=== PATIENT | female | born 1950 | race Hispanic/Latino ===

== ENCOUNTER 2019-03-20 20:05 | Emergency (ER) | payer MEDICARE ==
[~2019-03-20] VITALS: Ht 165.1 cm; Wt 115.2 kg
--- OUTSIDE RECORDS SUMMARY | 2019-03-20 20:08 | XMS REPORT ---
Author Author [facility] Address Unknown Phone Unavailable Care Team Providers Care Digital Content Marketing Manager Name Role Phone CANDE ESCOBAR Unavailable Unavailable PAM RAMAN Unavailable Unavailable CHUYITA WATTERS Unavailable Unavailable Problems This patient has no known problems. Allergies, Adverse Reactions, Alerts This patient has no known allergies or adverse reactions. Medications This patient has no known medications. Results Test Description Test Time Test Comments Text Results Atomic Results Result Comments POCT-GLUCOSE METER 2019-02-21 07:25:00 POC-GLUCOSE METER (BEAKER) (test flgr=2197) 95 mg/dL 70-110 [address]ED AT [address] [address] POCT-GLUCOSE [id number] 07:49:00* Test Item Value Reference Range Comments POC-GLUCOSE METER (BEAKER) (test ynfb=4049) 98 mg/dL 70-110 TESTED AT [address] [address] TISSUE [id number] 14:57:00Surgical Pathology Report Case: [id number] Authorizing Provider: Rigoberto Raman, Collected: 05/27/2018 Lluvia ANDINO Ordering Location: [facility] Endoscopy Received: 05/27/2018 1350 Services Pathologist: Sandie Brennan MD Specimens: A) - Biopsy, Gastric, random B) - Distal Esophagus, biopsy C) - Proximal Esophagus A. STOMACH, RANDOM, ENDOSCOPIC BIOPSY: - CHRONIC ACTIVE GASTRITIS, HELICOBACTER PYLORI-ASSOCIATED - NUMEROUS HELICOBACTER PYLORI-LIKE ORGANISMS SEEN ON WARTHIN-STARRY STAIN - NO INTESTINAL METAPLASIA, DYSPLASIA OR MALIGNANCY NOTEDB. ESOPHAGUS, DISTAL, ENDOSCOPIC BIOPSY: - SQUAMOUS MUCOSA WITH REACTIVE CHANGES - FEATURES SUGGESTIVE OF GASTROESOPHAGEAL REFLUX - BACTERIA SEEN - A TINY DETACHED FRAGMENT OF COLUMNAR MUCOSA - NEGATIVE FOR INTESTINAL METAPLASIA, DYSPLASIA OR MALIGNANCYC.ESOPHAGUS, PROXIMAL , ENDOSCOPIC BIOPSY: - SQUAMOUS MUCOSA WITH REACTIVE CHANGES - NEGATIVE FOR DYSPLASIA OR MALIGNANCY Signing Pathologist Direct Phone Line: [phone] signed by Sandie Brennan MD on 05/30/2018 at 2:57 [id number] X 3; [id number] dysphagia A. Random gastric biopsy. B. Distal esophagus biopsy. C. Proximal esophagus biopsy Specimen is received in three containers of formalin all labeled with the patient's information. Specimen A: Labeled "random gastric biopsy" consists of five fragments of thompson-pink soft tissue ranging from less than 0.1 to 0.3 cm, submitted entirely in A1. Specimen B: Labeled "distal esophagus biopsy" consists of two fragments of off-white soft tissue measuring 0.1 and 0.3 cm, submitted entirely in B1. Specimen C: Labeled "proximal esophagus biopsy" consists of three fragments of thompson-pink, off-white soft tissue ranging from 0.1 and 0.4 cm, submitted entirely in C1. CG/ew PERFORMEDThe interpretation of this case included the use of immunohistochemistry or special stains. WARTHIN-STARRYImmuno histochemistry technical testing was performed at [facility], Pathology Laboratory where it was developed and its performance characterist ics were determined. It has not been cleared or approved by the U.S. Food and Dr ug Administration. The FDA has determined that such clearance or approval is not necessary. The test is used for clinical purposes. It should not be regarded as investigational or for research. This laboratory is certified under the Clinical Laboratory Improvement Amendments of 1988 (CLIA-88) as qualified to perform high complexity clinical laboratory testing.POCT-GLUCOSE [id number] 11:10:00* Test Item Value Reference Range Comments POC-GLUCOSE METER (BEAKER) (test avdy=3807) 108 mg/dL 70-110 TESTED AT [facility] [address] [facility] [address] POCT-GLUCOSE [id number] 07:40:00* Test Item Value Reference Range Comments POC-GLUCOSE METER (BEAKER) (test gqxb=3760) 114 mg/dL 70-110 TESTED AT [facility] [address] [facility] [address]
--- OUTSIDE RECORDS SUMMARY | 2019-03-20 20:08 | XMS REPORT | Summary of Care ---
Author Author [facility] Organization [facility] Address Unknown Phone Unavailable Care Team Providers Care Sodium Methylate Operator Name Role Phone PCP Unavailable Reason for Visit * Reason Comments Cataract * Consult, Test & Treat (Routine) Referred By Contact Referred To Contact Status Reason Specialty Diagnoses / [place] [address] [place] [address] Ev Mohamud MD [address] [place] [address] Authorized Consult, Test, and Ophthalmology Diagnoses Treat Non-insulin dependent type 2 diabetes mellitus (HCCode) Blurred vision P rocedures [place] OFFICE OUTPATIENT VISIT 15 MINUTES Encounter Details Care Team Description Date Type Department Ev Mohamud MD [address] [place] [address] Cataract 01/25/2019 Office Visit [facility] Ophthalmology [address] [place] [phone] Allergies Comments Active Allergy Reactions Severity Noted Date weakness Hepatitis B Virus Vaccine Nausea And 05/27/2018 Vomiting documented as of this encounter (statuses as of 01/25/2019) Medications End Date Status Medication Sig Dispensed Refills Start Date Active Elastic Bandages & 1 Piece 1 Each 0 Supports (KNEE BRACE/FLEX daily. 8 STAYS XL) MISC Active losartan-hydrochlorothiaz Take 1 Tab by 90 Tab 3 kaushik (HYZAAR) 50-12.5 MG mouth daily. 8 per tabletIndications: Type 2 diabetes mellitus treated without insulin [facility] Active ONETOUCH USE TO CHECK 200 Strip 3 VERIOIndications: Type 2 BLOOD SUGARS 8 diabetes mellitus treated TWICE DAILY without insulin ([facility] Active ONETOUCH DELICA LANCETS CHECK FASTING 200 Each 3 33G MISCIndications: Type BLOOD GLUCOSE 8 2 diabetes mellitus TWICE DAILY treated without insulin ([facility]) Active methocarbamol (ROBAXIN) Take 1 Tab by 60 Tab 1 500 MG tabletIndications: mouth 2 times 9 Spasm of muscle of lower daily as back needed for Pain. Active buPROPion (WELLBUTRIN XL) Take 1 Tab by 90 Tab 2 150 MG XL mouth every 9 tabletIndications: morning. Depressed mood Active ciclopirox (PENLAC) 8 % Apply weekly 6.6 mL 11 solutionIndications: to toenails 9 Onychomycosis, Type 2 and diabetes mellitus with surrounding diabetic polyneuropathy, cuticles. without long-term current use of insulin ([facility]) Active omeprazole (PRILOSEC) 40 TAKE 1 180 Cap 0 MG capsuleIndications: H. CAPSULE BY 9 pylori infection MOUTH TWICE DAILY BEFORE MEALS FOR 14 DAYS Active Dulaglutide (TRULICITY) INJECT 1 12 Pen 3 1.5 MG/0.5ML SYRINGEFUL( 9 SOPNIndications: 1.5 MG) UNDER Non-insulin dependent THE SKIN ONCE type 2 diabetes mellitus WEEKLY ([facility]) Active ketoconazole (NIZORAL) 2 Apply to 1 Tube 11 % creamIndications: affected area 9 Candidal intertrigo twice a day until rash improves. Active pioglitazone (ACTOS) 15 Take 1 Tab by 90 Tab 3 MG tabletIndications: mouth daily. 9 Non-insulin dependent type 2 diabetes mellitus (HCCode) Active meloxicam (MOBIC) 15 MG TAKE 1 TABLET 30 Tab 0 tablet BY MOUTH 9 DAILY Active Lifitegrast 5 % SOLN Place 1 Drop 60 Each 6 into both 9 eyes two times daily. Discard single use container after using. Remove contact lenses prior use and may be reinserted 15 minutes following. 01/25/2019 Discontinued buPROPion (WELLBUTRIN XL) Take 1 Tab by 90 Tab 2 150 MG XL mouth every 9 tabletIndications: morning. Depressed mood 01/25/2019 Discontinued meloxicam (MOBIC) 15 MG TAKE 1 TABLET 30 Tab 0 tablet BY MOUTH 9 DAILY documented as of this encounter (statuses as of 01/25/2019) Active Problems Problem Noted Date Severe nonproliferative diabetic retinopathy of both eyes with macular 04/13/2018 edema associated with type 2 diabetes mellitus (HCCode) Hypertensive retinopathy of both eyes, grade 2 04/13/2018 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 cataract, both eyes 04/13/2018 Patellofemoral arthritis of left knee 03/30/2018 Acute medial meniscus tear of left knee 03/30/2018 Non-insulin dependent type 2 diabetes mellitus (HCCode) 06/04/2017 Diabetes mellitus with retinopathy ([facility]) 11/27/2016 Vitamin D deficiency 05/15/2015 Overview: Overview: Needs level rechecked at follow up appointment Obesity, Class II, BMI 35.0-39.9, with comorbidity (see actual BMI) 03/22/2015 Influenza vaccine refused 03/20/2015 HTN (hypertension) 12/17/2014 documented as of this encounter (statuses as of 01/25/2019) Immunizations Name Administration Dates Next Due Pneumococcal 13-valent 03/01/2018, 12/17/2014 Conjugate Vaccine Tdap 12/17/2014 documented as of this encounter Social History Date Tobacco Use Types Packs/Day Years Used Light Tobacco Smoker 0 0 Smokeless Tobacco: Never Used Drinks/Week oz/Week Comments Alcohol Use 0.0 Special occassio Yes Alcohol Habits Answer Date Recorded How often do you have a drink containing alcohol? Monthly or less 07/19/2018 How many drinks containing alcohol do you have on 1 or 2 07/19/2018 a typical day when you are drinking? How often do you have six or more drinks on one Never 07/19/2018 occasion? Sex Assigned at Date Recorded Not on file Industry Job Start Date Occupation Not on file Not on file Not on file Travel End Travel History Travel Start No recent travel history available. documented as of this encounter Last Filed Vital Signs Not on filedocumented in this encounter Patient Instructions * Patient Instructions* Ev Mohamud MD - 01/25/2019 10:20 AM CDT Xiidra twice a day both eyes Tears as needed documented in this encounter Progress Notes * Ev Mohamud MD - 01/25/2019 10:20 AM CDT STUDY/STUDIES: Pavel: IA from dry eye ASSESSMENT/PLAN 1. 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 cataract, both eyes 2. 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 Hypertensive retinopathy of both eyes, grade 2 - 1) Cataract OU OS > OD Cataract - visually significant, diminished quality of vision and affecting acti vities of daily living such as reading, driving, mobility. Risks, benefits, alte rnative of cataract surgery discussed with patient including but not limited to loss of vision, bleeding, infection, glaucoma, retina problems, swelling, need f or more procedures. Patient elects to proceed with surgery understanding the alt ernative is to wait or try glasses. Cataract Plan: Eye Both; First eye Left IOL plan: monofocal IOL with a target for distance correction. 54[address] Suture in the wound 2) Severe NPDR with macular edema - followed with Dr Yousif - plan to see Dr Feng after surgery ATTESTATIONS: I have reviewed the PMH, SH, FHX, ROS, MEDS, ALLERGIES and TECH NOTE, and have u pdated the computerized patient record appropriately. The risks, benefits, and alternatives of treatment were discussed with the patie nt (& family, if present). All questions regarding diagnosis and treatment were answered to the patient's satisfaction. documented in this encounter Plan of Treatment Care Team Description Date Type Specialty Rebecca Feng MD [address] [place], [place] [id number] [place] [address] 02/17/2019 Office Visit Ophthalmology Shen Bundy MD [address] [facility] [address] [place] [address] 04/06/2019 Office Visit Endocrinology Health Maintenance Due Date Last Done Comments BMI FOLLOW UP PLAN 07/20/2019 07/19/2018, 07/19/2018, 05/20/2017 FALL SCREEN 07/20/2019 07/19/2018, 07/19/2018 MAMMOGRAM ANNUAL 07/20/2019 07/19/2018 (Declined), 05/27/2017 ANNUAL DIABETIC 07/26/2019 07/25/2018, 04/13/2018, 04/13/2018, RETINOPATHY SCREENING Additional history exists ANNUAL DIABETIC FOOT EXAM 11/25/2019 11/24/2018, 11/24/2018, 11/21/2018, Additional history exists TETANUS SHOT (ADULT) 12/17/2024 12/17/2014 COLON CANCER SCREENIN05/20/2027 05/20/2017 (Declined) COLONOSCOPY HEPATITIS C SCREENING Completed 05/20/2017 OSTEOPOROSIS SCREENING Completed 05/27/2017 PREVNAR >=65 (PCV13) Completed 03/01/2018, 12/17/2014 PNEUMOVAX >=65 (PPSV23) Addressed 07/19/2018 (Declined), 05/20/2017 Overridden with the (Declined) intention of not completing the topic FLU VACCINE > 6 MONTHS Completed 12/15/2018, 02/01/2018 (Declined), 05/20/2017 (Declined) documented as of this encounter Procedures Comments Procedure Name Priority Date/Time Associated Diagnosis CORNEAL TOPOGRAPHY - OU - Routine 01/25/2019 Dry eye syndrome of both BOTH EYES 10:49 AM CDT eyes documented in this encounter Results * CORNEAL TOPOGRAPHY - OU - BOTH EYES (01/25/2019 10:49 AM CDT) Specimen Narrative Performed At Right Eye Progression has worsened. Findings include irregular astigmatism, scarring. Left Eye Progression has worsened. Findings include scarring, irregular astigmatism. documented in this encounter Visit Diagnoses Diagnosis 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 cataract, both eyes - Primary 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 (HCCode) Hypertensive retinopathy of both eyes, grade 2 Dry eye syndrome of both eyes documented in this encounter Insurance Type Payer Benefit Subscriber ID Effective Phone Address Plan / Dates Group HMO RENAIBRIAN ROTHMAN O xxxxxxxx 2018-P [address] - RNPO PCP resent [id number] - [facility] [id number] [address] documented as of this encounter
--- OUTSIDE RECORDS SUMMARY | 2019-03-20 20:08 | XMS REPORT | Summary of Care ---
Author Author [facility] Organization [facility] Address Unknown Phone Unavailable Care Team Providers Care Paste Mixer Name Role Phone Katie Hdz MD PCP Reason for Visit * Reason Comments Retinal Problem * Consult, Test & Treat (Routine) Referred By Contact Referred To Contact Status Reason Specialty Diagnoses / Procedures Jaxson Siddiqi Jr., MD [address] [facility] [address] [place] [address] Rebecca Feng MD [address] [place] [address] Authorized Ophth Retina Diagnoses Specialist / Retina 3-4 months Ophthalmology P rocedures NEW PATIENT ESTABLISHED Encounter Details Care Team Description Date Type Department Rebecca Feng MD [address] [place] [address] [phone] Retinal Problem 02/17/2019 Office Visit [facility] Ophthalmology [address] [place] [phone] Allergies Comments Active Allergy Reactions Severity Noted Date weakness Hepatitis B Virus Vaccine Nausea And 05/27/2018 Vomiting documented as of this encounter (statuses as of 02/17/2019) Medications End Date Status Medication Sig Dispensed Refills Start Date Active Elastic Bandages & 1 Piece 1 Each 0 Supports (KNEE BRACE/FLEX daily. 8 STAYS XL) MISC Active losartan-hydrochlorothiaz Take 1 Tab by 90 Tab 3 kaushik (HYZAAR) 50-12.5 MG mouth daily. 8 per tabletIndications: Type 2 diabetes mellitus treated without insulin (HCCode) Active ONETOUCH USE TO CHECK 200 Strip [...] and may be reinserted 15 minutes following. Active difluprednate (DUREZOL) Place 1 Drop 1 Bottle 2 0.05 % ophthalmic into the left 9 emulsion eye 3 times daily. Active trimethoprim-polymyxin b Place 1 Drop 1 Bottle 1 (POLYTRIM) ophthalmic into the left 9 solution eye 3 times daily. Active Bromfenac Sodium Apply 1 Drop 3 mL 1 (PROLENSA) 0.07 % SOLN to eye daily. 9 Use once daily until finished with the bottle documented as of this encounter (statuses as of 02/17/2019) Active Problems Problem Noted Date Severe nonproliferative diabetic retinopathy of both eyes with macular 04/13/2018 edema associated with type 2 diabetes mellitus ([facility] Hypertensive retinopathy of both eyes, grade 2 04/13/2018 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 cataract, both eyes 04/13/2018 Patellofemoral arthritis of left knee 03/30/2018 Acute medial meniscus tear of left knee 03/30/2018 Non-insulin dependent type 2 diabetes mellitus ([facility]) 06/04/2017 Diabetes mellitus with retinopathy ([facility]) 11/27/2016 Vitamin D deficiency 05/15/2015 Overview: Overview: Needs level rechecked at follow up appointment Obesity, Class II, BMI 35.0-39.9, with comorbidity (see actual BMI) 03/22/2015 Influenza vaccine refused 03/20/2015 HTN (hypertension) 12/17/2014 documented as of this encounter (statuses as of 02/17/2019) Immunizations Name Administration Dates Next Due Pneumococcal [...] Signs Not on filedocumented in this encounter Progress Notes * Rebecca Feng MD - 02/17/2019 10:00 AM CDT 68 y.o.F here for f/u of Severe NPDR with macular edema. Referring:former pt Past Medical History: NIDDM type 2 x10yrs A1C:6.2 08/2018 BS:pt does not check it because it does not w ork last time check was 3 weeks ago Ocular Hx: Surgery?Cataract OS Lasers?yes Injections?yes Trauma?None Family Hx:None Social: Occupation?retired Smoking status:former Drops/Eye Medications: Durezol qd OS OCT OD: few superior and inferior IR cysts, no central edema, good foveal contour OS: rare temporal IR cysts, no central edema, good foveal contour 1. Very Severe NPDR OD, Severe NPDR OS with CME OU - DM2 x 10 years, BeF5u=2.2. SBP~120s - OD: s/p Avastin OD 09/13/2017, 10/11/2017, 12/17/2017, 01/24/2018 Exam, 02/21/2018, 04/02, 07/25/2018 S/p focal laser 03/07/2018 - no central edema, stable, observe - OS: Avastin OS 07/23/2017, 09/13/2017, 10/11/2017, 12/17/2017, 01/24/2018, 02/22/20 18, 04/13/2018 - Mostly exudates, poor targets for focal - no central edema, stable, observe 2. Cataracts OU - Refer for cataract evaluation 3. Hx Intraocular inflammation OS after plant stuck patient in the eye years ago (unclear depth or location) per patient - No corneal scars, no obvious RG site - Also hx needing muscle exercises at 14yo, unclear reason. Denied diplopia or s urgery or strabismus - Quiet. Observe 4. Dry Eyes/ Blepharitis OU - Lid hygiene + preservative free artifical tears - Refer to cornea. Pt states using drops 3-4x/d but still has FBS. RTC Jung 3-4 months with OCT documented in this encounter Plan of Treatment Care Team Description Date Type Specialty OneidaEv rivera MD [address] [place] [address] [phone] 02/20/2019 Office Visit Ophthalmology Ev Mohamud MD [address] [place] [address] [phone] 02/21/2019 Appointment Ophthalmology Ev Mohamud MD [address] [place] [address]. [place] [address] [phone] 02/22/2019 Office Visit Ophthalmology Ev Mohamud MD [address] [place] [address] [phone] 03/15/2019 Office Visit Ophthalmology Shen Bundy MD [address] [facility] [address] [place] [address] [phone] 04/06/2019 Office Visit Endocrinology Health Maintenance Due Date Last Done Comments BMI FOLLOW UP PLAN 07/20/2019 07/19/2018, 07/19/2018, 05/20/2017 FALL SCREEN 07/20/2019 07/19/2018, 07/19/2018 MAMMOGRAM ANNUAL 07/20/2019 07/19/2018 (Declined), 05/27/2017 ANNUAL DIABETIC FOOT EXAM 11/25/2019 11/24/2018, 11/24/2018, 11/21/2018, Additional history exists ANNUAL DIABETIC 01/26/2020 01/25/2019, 07/25/2018, 04/13/2018, RETINOPATHY SCREENING Additional history exists TETANUS SHOT (ADULT) 12/17/2024 [...] Comments Procedure Name Priority Date/Time Associated Diagnosis OCT, RETINA - OU - BOTH Routine 02/17/2019 Severe nonproliferative EYES 10:31 AM CDT diabetic retinopathy of both eyes with macular edema associated with type 2 diabetes mellitus (HCCode) documented in this encounter Results * OCT, RETINA - OU - BOTH EYES (02/17/2019 10:31 AM CDT) Specimen Narrative Performed At See note documented in this encounter Visit Diagnoses Diagnosis 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
--- OUTSIDE RECORDS SUMMARY | 2019-03-20 20:08 | XMS REPORT | Summary of Care ---
Author Author [facility] Organization [facility] Address Unknown Phone Unavailable Care Team Providers Care Microfilm Camera Operator Name Role Phone Katherine Esperanza PCP Reason for Visit * Reason Comments Blurred Vision * Consult, Test & Treat (Routine) Referred By Contact Referred To Contact Status Reason Specialty Diagnoses / Procedures Ev Mohamud MD [address] [place] [address] Ev Mohamud MD [address] [place] [address] Authorized Ophth Cornea Diagnoses Specialist / Combined forms of Ophthalmology age-related cataract, bilateral PRE OP CALCS P rocedures MS OPHTHAL BIOMETRY,INTRAOC LENS POW CALC US, EYE BIOMETRY W LENS CALC PROP W ODS Encounter Details Care Team Description Date Type Department Ev Mohamud MD [address] [place] [address] [id number] Blurred Vision 01/30/2019 Office Visit [facility] Ophthalmology [address] [place] [phone] Allergies Comments Active Allergy Reactions Severity Noted Date weakness Hepatitis B Virus Vaccine Nausea And 05/27/2018 Vomiting documented as of this encounter (statuses as of 01/30/2019) Medications End Date Status Medication Sig Dispensed Refills Start Date Active Elastic Bandages & 1 Piece 1 Each 0 Supports (KNEE BRACE/FLEX daily. 8 STAYS XL) MISC Active losartan-hydrochlorothiaz Take 1 Tab by 90 Tab 3 kaushik (HYZAAR) 50-12.5 MG mouth daily. 8 per tabletIndications: Type 2 diabetes mellitus treated without insulin [facility] Active ONETOUCH USE TO CHECK 200 Strip 3 VERIOIndications: Type 2 BLOOD SUGARS 8 diabetes mellitus treated TWICE DAILY without insulin ([facility] Active ONETOUCH DELICA LANCETS CHECK FASTING 200 Each 3 33G MISCIndications: Type BLOOD GLUCOSE 8 2 diabetes mellitus TWICE DAILY treated without insulin ([facility] Active methocarbamol (ROBAXIN) Take 1 Tab by [...] without long-term current use of insulin ([facility] Active omeprazole (PRILOSEC) 40 TAKE 1 180 Cap 0 MG capsuleIndications: H. CAPSULE BY 9 pylori infection MOUTH TWICE DAILY BEFORE MEALS FOR 14 DAYS Active Dulaglutide (TRULICITY) INJECT 1 12 Pen 3 1.5 MG/0.5ML SYRINGEFUL( 9 SOPNIndications: 1.5 MG) UNDER Non-insulin dependent THE SKIN ONCE type 2 diabetes mellitus WEEKLY ([facility]) Active ketoconazole (NIZORAL) 2 Apply to 1 Tube 11 % creamIndications: affected area 9 Candidal intertrigo twice a day until rash improves. Active pioglitazone (ACTOS) 15 Take 1 Tab by 90 Tab 3 MG tabletIndications: mouth daily. 9 Non-insulin dependent type 2 diabetes mellitus ([facility] Active meloxicam (MOBIC) 15 MG TAKE 1 [...] as of this encounter (statuses as of 01/30/2019) Active Problems Problem Noted Date Severe nonproliferative diabetic retinopathy of both eyes with macular 04/13/2018 edema associated with type 2 diabetes mellitus ([facility] Hypertensive retinopathy of both eyes, grade 2 04/13/2018 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 cataract, both eyes 04/13/2018 Patellofemoral arthritis of left knee 03/30/2018 Acute medial meniscus tear of left knee 03/30/2018 Non-insulin dependent type 2 diabetes mellitus ([facility] 06/04/2017 Diabetes mellitus with retinopathy ([facility]) 11/27/2016 Vitamin D deficiency 05/15/2015 Overview: Overview: Needs level rechecked at follow up appointment Obesity, Class II, BMI 35.0-39.9, with comorbidity (see actual BMI) 03/22/2015 Influenza vaccine refused 03/20/2015 HTN (hypertension) 12/17/2014 documented as of this encounter (statuses as of 01/30/2019) Immunizations Name Administration Dates Next Due Pneumococcal [...] filedocumented in this encounter Progress Notes * Ev Mohamud MD - 01/30/2019 3:25 PM CDT STUDY/STUDIES: Pavel: IA from dry eye ASSESSMENT/PLAN 1. 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 cataract, both eyes 2. 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 Hypertensive retinopathy of both eyes, grade 2 4. Dry eye syndrome of both eyes 5. Cystoid macular edema of both eyes - 1) Cataract OU OS > OD [...] IOL with a target for distance correction. [address] Suture in the wound 2) Severe NPDR [...] Treatment Care Team Description Date Type Specialty Ev Mohamud MD [address] [facility] [place] [address] 01/31/2019 Appointment Ophthalmology Ev Mohamud MD [address] [facility] [place] [address] 02/01/2019 Office Visit Ophthalmology Rebecca Feng MD [address] [place] [address] [address] [place] [address] [phone] 02/17/2019 Office Visit Ophthalmology Ev Mohamud MD [address] [place] [address]. [place] [address] [phone] 02/20/2019 Office Visit Ophthalmology Ev Mohamud MD [address] [place] [address]. [place] [address] [phone] 02/21/2019 Appointment Ophthalmology Ev Mohamud MD [address] [place] [address]. [place] [address] [phone] 02/22/2019 Office Visit Ophthalmology Ev Mohamud MD [address] [place] [address]. [place] [address] [phone] 03/15/2019 Office Visit Ophthalmology Shen Bundy MD [address] [facility] [address] [place] [address] [phone] 04/06/2019 Office Visit Endocrinology Health Maintenance Due [...] Comments Procedure Name Priority Date/Time Associated Diagnosis IOL BIOMETRY - OU - BOTH Routine 01/30/2019 Combined form of EYES 3:31 PM CDT age-related cataract, both eyes documented in this encounter Results * IOL BIOMETRY - OU - BOTH EYES (01/30/2019 3:31 PM CDT) Specimen Narrative Performed At Right Eye Lens style: Envista 18.5D. 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
--- OUTSIDE RECORDS SUMMARY | 2019-03-20 20:08 | XMS REPORT | Summary of Care ---
Author Author [facility] Organization [facility] Address Unknown Phone Unavailable Care Team Providers Care Software Tools Engineer Name Role Phone Katie Hdz MD PCP Reason for Visit * Reason Comments Post-op Follow-up Pre-op Exam * Consult, Test & Treat (Routine) Referred By Contact Referred To Contact Status Reason Specialty Diagnoses / Procedures Jaxson Siddiqi Jr., MD [address] [facility] [address] [place] [address] Rebecca Feng MD [address] [place], [place] [address] [place] [address] Authorized Ophth Retina Diagnoses Specialist / Retina 3-4 months Ophthalmology P rocedures NEW PATIENT ESTABLISHED Encounter Details Care Team Description Date Type Department Ev Mohamud MD [address] [place] [address]. [place] [address] [phone] Post-op Follow-up; Pre-op Exam 02/20/2019 Office Visit [facility] Ophthalmology [address] [place] [phone] Allergies Comments Active Allergy Reactions Severity Noted Date weakness Hepatitis B Virus Vaccine Nausea And 05/27/2018 Vomiting documented as of this encounter (statuses as of 02/22/2019) Medications End Date Status Medication Sig Dispensed Refills Start Date Active Elastic Bandages & 1 Piece 1 Each 0 Supports (KNEE BRACE/FLEX daily. 8 STAYS XL) MISC Active losartan-hydrochlorothiaz Take 1 Tab by 90 Tab 3 kaushik (HYZAAR) 50-12.5 MG mouth daily. 8 per tabletIndications: Type 2 diabetes mellitus [facility] Active ONETOUCH USE TO CHECK 200 Strip 3 VERIOIndications: Type 2 BLOOD SUGARS 8 diabetes mellitus treated TWICE DAILY without insulin [facility] Active ONETOUCH DELICA LANCETS CHECK FASTING 200 Each 3 33G MISCIndications: Type BLOOD GLUCOSE 8 2 diabetes mellitus TWICE DAILY treated without insulin [facility] Active methocarbamol (ROBAXIN) Take 1 Tab by [...] cuticles. without long-term current use of insulin [facility] Active omeprazole (PRILOSEC) 40 TAKE 1 180 Cap 0 MG capsuleIndications: H. CAPSULE BY 9 pylori infection MOUTH TWICE DAILY BEFORE MEALS FOR 14 DAYS Active Dulaglutide (TRULICITY) INJECT 1 12 Pen 3 1.5 MG/0.5ML SYRINGEFUL( 9 SOPNIndications: 1.5 MG) UNDER Non-insulin dependent THE SKIN ONCE type 2 diabetes mellitus WEEKLY [facility] Active ketoconazole (NIZORAL) 2 Apply to 1 Tube 11 % creamIndications: affected area 9 Candidal intertrigo twice a day until rash improves. Active pioglitazone (ACTOS) 15 Take 1 Tab by 90 Tab 3 MG tabletIndications: mouth daily. 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 04/13/2018 edema associated with type 2 diabetes mellitus [facility] Hypertensive retinopathy of both eyes, grade 2 04/13/2018 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 cataract, both eyes 04/13/2018 Patellofemoral arthritis of left knee 03/30/2018 Acute medial meniscus tear of left knee 03/30/2018 Non-insulin dependent type 2 diabetes mellitus [facility] 06/04/2017 Diabetes mellitus with retinopathy [facility] 11/27/2016 Vitamin D deficiency 05/15/2015 Overview: Overview: Needs level rechecked at follow up appointment Obesity, Class II, BMI 35.0-39.9, with comorbidity (see actual BMI) 03/22/2015 Influenza vaccine refused 03/20/2015 HTN (hypertension) 12/17/2014 documented as of this encounter (statuses as of 02/22/2019) Immunizations Name Administration Dates Next Due Pneumococcal [...] Progress Notes * Ev Mohamud MD - 02/20/2019 2:25 PM CDT Slit lamp & dilated fundus examination - Right eye: Conjunctiva/sclera: Normal Cornea: Clear Wound: Sealed Anterior chamber: Clear Iris: Normal PC IOL: Central Posterior capsule: Intact and clear Dilated fundus: Flat with no tears; unchanged from preoperative state ASSESSMENT: - s/p CE/IOL, right eye - Post-op week #3 - Doing well PLAN: - Continue steroid/NSAID drop taper - I reviewed and answered all questions regarding activity, eye care, and me dications. - RTC as noted below or PRN Signs and Symptoms of Retinal detachment discussed including but not limited to loss of vision, curtain of vision, floaters and flashes of light. Pt to call and notify immediately if any increase in redness or sensitivity to l ight, change in vision, or pain even if a weekend or evening Blurry vision Chief Complaint Patient presents with Post-op Follow-up Pre-op Exam HISTORY OF PRESENT ILLNESS: Patient Active Problem List Diagnosis Diabetes mellitus with retinopathy ([facility]) Vitamin D deficiency Obesity, Class II, BMI 35.0-39.9, with comorbidity (see actual BMI) Influenza vaccine refused HTN (hypertension) Non-insulin dependent type 2 diabetes mellitus ([facility]) Patellofemoral arthritis of left knee Acute medial meniscus tear of left knee 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 ([facility]) Hypertensive retinopathy of both eyes, grade 2 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 cataract, both eyes Past Medical History: Diagnosis Date Anxiety Taking medication a low dose Breast lump Cataract Dr Coles referred me after she felt my diabetes issue in eyes Diabetes ([facility]ode) Diabetes mellitus (H[facility]ode) About 10 years Some what control Hypertension Social History Tobacco Use Smoking status: Light Tobacco Smoker Packs/day: 0.00 Years: 0.00 Pack years: 0.00 Smokeless tobacco: Never Used Substance Use Topics Alcohol use: Yes Alcohol/week: 0.0 oz Frequency: Monthly or less Drinks per session: 1 or 2 Binge frequency: Never Comment: Special occassio Outpatient Medications Prior to Visit Medication Sig Dispense Refill Bromfenac Sodium Apply 1 Drop to eye daily. Use once daily until finished wi th the bottle 3 mL 1 buPROPion Take 1 Tab by mouth every morning. 90 Tab 2 ciclopirox Apply weekly to toenails and surrounding cuticles. 6.6 mL [address] 1 Drop into the left eye 3 times daily. 1 Bottle 2 Dulaglutide INJECT 1 SYRINGEFUL( 1.5 MG) UNDER THE SKIN ONCE WEEKLY 12 Pen 3 Knee Brace/Flex Stays XL 1 Piece daily. 1 Each 0 ketoconazole Apply to affected area twice a day until rash improves. [address] 1 Drop into both eyes two times daily. Discard single use container after using. Remove contact lenses prior use and may be reinserted 15 minutes following. 60 Each 6 losartan-hydrochlorothiazide Take 1 Tab by mouth daily. 90 Tab 3 meloxicam TAKE 1 TABLET BY MOUTH DAILY 30 Tab 0 methocarbamol Take 1 Tab by mouth 2 times daily as needed for Pain. 60 Tab 1 omeprazole TAKE 1 CAPSULE BY MOUTH TWICE DAILY BEFORE MEALS FOR 14 DAYS 180 Cap 0 ONETOUCH DELICA LANCETS 33G CHECK FASTING BLOOD GLUCOSE TWICE DAILY 200 Each 3 ONETOUCH VERIO USE TO CHECK BLOOD SUGARS TWICE DAILY 200 Strip 3 pioglitazone Take 1 Tab by mouth daily. 90 Tab 3 trimethoprim-polymyxin b Place 1 Drop into the left eye 3 times daily. 1 Bot tle 1 No facility-administered medications prior to visit. Allergies as of 02/20/2019 - Reviewed 02/20/2019 Allergen Reaction Noted Hepatitis b virus vaccine Nausea And Vomiting 05/27/2018 Past Surgical History: Procedure Laterality Date HX APPENDECTOMY HX CHOLECYSTECTOMY HX KNEE ARTHROSCOPY Left 03/30/2018 s/p left knee arthroscopy, PLM, PMM, CP HX PARTIAL HYSTERECTOMY fibroids Review of Systems: No changes PHYSICAL EXAMINATION: General: Alert Oriented, No Acute Distress HEENT: No Mass or Deformity Neck: No Thyromegaly, No lymphadenopathy Heart: Normal Rhythm, No Murmur or Gallop Lungs: Clear to ascultation Thorax: No mass of deformity Abdomen: No mass or tenderness Back: No significant abnormalities Extremities: No edema or tenderness ASSESSMENT: Visually Significant Cataract, Left Eye PLAN: Phacoemulsification Cataract Extraction with Intraocular Lens Implantation, Left Eye After reviewing their options, the patient has elected to receive a monofocal IO L with a target for distance correction. I have reviewed the IOL calculations, including axial length, keratometric value s, and corneal topography. Consistent with the patient's request, the planned I OL is: CE/IOL ENVISTA 23.0 (AIM-0.59) SSK REVIEW OF INFORMED CONSENT: and I have discussed that there is a visually significant cataract in the left eye and they have requested cataract surgery. I have reviewed the ris ks, benefits, and alternatives to cataract surgery. The patient understands chelsey t this is a surgical procedure in which we will make an incision in the eye, rem ove the cloudy lens, and replace it with a clear plastic lens implant. Like all incisional surgical procedures, potential sight-threatening complications inclu de bleeding, infection, and retinal detachment, any of which could result in per manent partial or complete loss of vision. A partial list of other potential co mplications includes glaucoma, corneal swelling, glare, shadows, pain, redness, and inaccurate lens power requiring correction with glasses, contact lenses or o ther surgery. Ev Mohamud MD documented in this encounter Plan of Treatment Care Team Description Date Type Specialty Ev Mohamud MD [address] [facility] [place] [address] [phone] 03/15/2019 Office Visit Ophthalmology Shen Bundy MD [address] [facility] [address] [place] [address] [phone] 04/06/2019 Office Visit Endocrinology Rebecca Feng MD [address] [facility] [address] [place] [address] [phone] 05/19/2019 Office Visit Ophthalmology Health Maintenance Due Date Last Done Comments BMI FOLLOW UP PLAN 07/20/2019 07/19/2018, 07/19/2018, 05/20/2017 FALL SCREEN 07/20/2019 07/19/2018, 07/19/2018 MAMMOGRAM ANNUAL 07/20/2019 07/19/2018 (Declined), 05/27/2017 ANNUAL DIABETIC FOOT EXAM 11/25/2019 11/24/2018, 11/24/2018, 11/21/2018, Additional history exists ANNUAL DIABETIC 02/21/2020 02/20/2019, 02/17/2019, 01/25/2019, RETINOPATHY SCREENING Additional history exists TETANUS SHOT [...] Priority Date/Time Associated Diagnosis IOL BIOMETRY - OD - PROF Routine 02/20/2019 Combined form of COMP 2ND EYE 1:58 PM CDT age-related cataract, both eyes documented in this encounter Results * IOL BIOMETRY - OD - PROF COMP 2ND EYE (02/20/2019 1:58 PM CDT) Specimen Narrative Performed At IOL calcs reviewed documented in this encounter Visit Diagnoses Diagnosis 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
--- OUTSIDE RECORDS SUMMARY | 2019-03-20 20:08 | XMS REPORT | Summary of Care ---
Author Author [facility] Organization [facility] Address Unknown Phone Unavailable Care Team Providers Care Exit Booth Agent Name Role Phone Annelise Murphyfer PCP Reason for Visit * Reason Comments Post-op Follow-up Encounter Details Care Team Description Date Type Department Ev Mohamud MD [address] [facility] [place] [address] Post-op Follow-up 02/01/2019 Office Visit [facility] Ophthalmology [address] [place] [phone] Allergies Comments Active Allergy Reactions Severity Noted Date weakness Hepatitis B Virus Vaccine Nausea And 05/27/2018 Vomiting documented as of this encounter (statuses as of 02/01/2019) Medications End Date Status Medication Sig Dispensed [...] diabetes mellitus treated TWICE DAILY without insulin [facility] Active ONETOUCH DELICA LANCETS CHECK FASTING 200 Each 3 33G MISCIndications: Type BLOOD GLUCOSE 8 2 diabetes mellitus TWICE DAILY treated without insulin [facility] Active methocarbamol (ROBAXIN) Take 1 [...] cuticles. without long-term current use of insulin ([facility]) Active omeprazole (PRILOSEC) 40 TAKE 1 180 Cap 0 MG capsuleIndications: H. CAPSULE BY 9 pylori infection MOUTH TWICE DAILY BEFORE MEALS FOR 14 DAYS Active Dulaglutide (TRULICITY) INJECT 1 12 Pen 3 1.5 MG/0.5ML SYRINGEFUL( 9 SOPNIndications: 1.5 MG) UNDER Non-insulin dependent THE SKIN ONCE type 2 diabetes mellitus WEEKLY [facility] Active ketoconazole (NIZORAL) 2 Apply [...] as of this encounter (statuses as of 02/01/2019) Active Problems Problem Noted Date Severe nonproliferative [...] mellitus (H[facility]ode) 06/04/2017 Diabetes mellitus with retinopathy ([facility]) 11/27/2016 Vitamin D deficiency 05/15/2015 Overview: Overview: Needs level rechecked at follow up appointment Obesity, Class II, BMI 35.0-39.9, with comorbidity (see actual BMI) 03/22/2015 Influenza vaccine refused 03/20/2015 HTN (hypertension) 12/17/2014 documented as of this encounter (statuses as of 02/01/2019) Immunizations Name Administration Dates Next Due Pneumococcal [...] Progress Notes * Ev Mohamud MD - 02/01/2019 10:50 AM CDT Slit lamp examination - Left eye: Conjunctiva/sclera: Normal Cornea: Trace edema at wound Wound: Sealed Anterior chamber: Trace cell and flare Iris: Normal PC IOL: Central Posterior capsule: Intact and clear ASSESSMENT: - s/p CE/IOL, left eye - Post-op day #1 - Doing well PLAN: - Continue drops as directed - Wear shield at night for one week - Discussed signs/symptoms of infection - I reviewed and answered all questions [...] or pain even if a weekend or evening. documented in this encounter Plan of Treatment Care Team Description Date Type Specialty Rebecca Feng MD [address] [place] [address] [address] [place] [address] [phone] 02/17/2019 Office Visit Ophthalmology Ev Mohamud MD [address] [place] [address]. [place] [address] 02/20/2019 Office Visit Ophthalmology Ev Mohamud MD [address] [place] [address]. [place] [address] 02/21/2019 Appointment Ophthalmology Ev Mohamud MD [address] [place] [address]. [place] [address] 02/22/2019 Office Visit Ophthalmology Ev Mohamud MD [address] [place] [address]. 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
--- OUTSIDE RECORDS SUMMARY | 2019-03-20 20:08 | XMS REPORT | Summary of Care ---
Author Author [facility] Organization [facility] Address Unknown Phone Unavailable Care Team Providers Care Manager Gaming Name Role Phone Katie Hdz MD PCP Reason for Visit * Reason Comments Post-op Follow-up Post-op Follow-up Encounter Details Care Team Description Date Type Department Ev Mohamud MD [address] [place] [address]. [place] [address] Post-op Follow-up; Post-op Follow-up 02/22/2019 Office Visit [facility] Ophthalmology [address] [place] [id number] Allergies Comments Active Allergy Reactions Severity [...] diabetes mellitus treated TWICE DAILY without insulin ([facility]) Active ONETOUCH DELICA LANCETS CHECK FASTING 200 Each 3 33G MISCIndications: Type BLOOD GLUCOSE 8 2 diabetes mellitus TWICE DAILY treated without insulin ([facility]) Active methocarbamol (ROBAXIN) Take 1 Tab by [...] cuticles. without long-term current use of insulin [facility] Active omeprazole (PRILOSEC) 40 TAKE 1 180 Cap 0 MG capsuleIndications: H. CAPSULE BY 9 pylori infection MOUTH TWICE DAILY BEFORE MEALS FOR 14 DAYS Active Dulaglutide (TRULICITY) INJECT 1 12 Pen 3 1.5 MG/0.5ML SYRINGEFUL( 9 SOPNIndications: 1.5 MG) UNDER Non-insulin dependent THE SKIN ONCE type 2 diabetes mellitus WEEKLY ([facility]) Active ketoconazole (NIZORAL) 2 Apply to 1 Tube 11 % creamIndications: affected area 9 Candidal intertrigo twice a day until rash improves. Active pioglitazone (ACTOS) 15 Take 1 Tab by 90 Tab 3 MG tabletIndications: mouth daily. 9 Non-insulin dependent type 2 diabetes mellitus ([facility]) Active meloxicam (MOBIC) 15 MG [...] Progress Notes * Ev Mohamud MD - 02/22/2019 10:50 AM CDT Slit lamp examination - Right eye: Conjunctiva/sclera: Normal Cornea: Trace edema at wound Wound: Sealed Anterior chamber: Trace cell and flare Iris: Normal PC IOL: Central Posterior capsule: Intact and clear ASSESSMENT: - s/p CE/IOL, right eye - Post-op day #1 - Doing well PLAN: - Continue drops as directed - Discussed signs/symptoms of infection - I reviewed and answered all questions regarding activity, eye care, and me dications. - RTC as noted below or PRN documented in this encounter Plan of Treatment Care Team Description Date Type Specialty Ev Mohamud MD [address] [facility] [place] [address] [phone] 03/15/2019 Office Visit Ophthalmology Shen Bundy MD [address] [facility] [address] [place], [place] [id number] 04/06/2019 Office Visit Endocrinology Rebecca Feng MD [address] [facility] [place], [place] [id number] 05/19/2019 Office Visit Ophthalmology Health Maintenance Due [...] filedocumented in this encounter Visit Diagnoses Diagnosis Nuclear senile cataract of both eyes - Primary Pseudophakia Lens replaced by other means documented in this encounter Insurance Type Payer Benefit Subscriber ID Effective Phone Address Plan / Dates Group [facility] [place] xxxxxxxx 2018-P [address] - RNPO PCP resent [id number] - [facility] [id number] [address] documented as of this encounter
--- NOTE | 2019-03-20 20:43 | NUR ---
ETA FOR US IS 20-30 MINUTES
--- NOTE | 2019-03-20 22:01 | Diagnostic Imaging Report ---
EXAM: Left Lower Extremity Venous Duplex Ultrasound INDICATION: Left leg pain, bruising ^[id number] ^6 COMPARISON: None TECHNIQUE: Rubi scale, color Doppler and spectral waveform analysis of the left lower extremity deep venous system was performed. FINDINGS: Significantly limited exam due to soft tissue echoattenuation. Common Femoral: Fully compressible with normal spontaneous waveforms. Proximal Greater Saphenous: Fully compressible. Femoral: Limited visualization with grayscale and color Doppler. Evaluation of compressibility is limited. No spontaneous waveforms are identified. Response to leg compression augmentation is detected. Proximal Deep Femoral: Not visualized. Popliteal: Fully compressible with normal spontaneous waveforms. Limited color Doppler flow. Flow detected in the proximal infrapopliteal veins. IMPRESSION: Significantly limited sonographic evaluation of the superficial and deep femoral veins due to soft tissue echoattenuation. Deep vein thrombosis is not excluded in these veins. Low suspicion for deep vein thrombosis in the common femoral and popliteal veins. Signed by: Chandan Hernandez DO on 03/20/2019 9:58 PM
--- NOTE | 2019-03-20 22:09 | Diagnostic Imaging Report ---
X-ray left ankle 3 views HISTORY: Pain. Trauma COMPARISON: None available. FINDINGS: Bones: Acute oblique minimally displaced distal fibular fracture extends to the distal tibiofibular joint. Joints: The joint spaces are well-maintained. Soft tissues: Vascular calcifications Calcaneal enthesophytes. IMPRESSION: Acute oblique minimally displaced distal fibular fracture. Consider stress ankle views to evaluate for medial ankle ligament injury. Signed by: Chandan Hernandez DO on 03/20/2019 10:05 PM
--- NOTE | 2019-03-20 22:11 | Diagnostic Imaging Report ---
X-ray left knee 3 views HISTORY: Pain. COMPARISON: None available. FINDINGS: Bones: No acute displaced fracture. Osseous alignment is within normal limits. Joints: Mild decreased joint space of the medial tibiofemoral compartment. Soft tissues: Vascular calcifications Curvilinear calcification along the medial femoral condyle as well as the cortex. IMPRESSION: No acute radiographic osseous abnormality. Mild degenerative changes in the knee. Signed by: Chandan Hernandez DO on 03/20/2019 10:08 PM
== END 2019-03-20 22:32 | disposition home or self-care (01) ==
LOC: FSED 20:05
DX: M25.572 Pain in left ankle and joints of left foot (principal); S82.432A Displaced oblique fracture of shaft of left fibula, initial encounter for closed fracture; M25.562 Pain in left knee; W18.30XA Fall on same level, unspecified, initial encounter; Y92.008 Other place in unspecified non-institutional (private) residence as the place of occurrence of the external cause; F17.210 Nicotine dependence, cigarettes, uncomplicated; E11.9 Type 2 diabetes mellitus without complications
CPT/HCPCS: 93970; 93971; 99284

== ENCOUNTER 2021-12-25 18:31 | Emergency (ER) | payer MEDICARE ==
[~2021-12-25] VITALS: Ht 165.1 cm; Wt 99.9 kg
[2021-12-25] MEDS ORDERED: BUPROPION XL300 MG (18:56)
[2021-12-25] MEDS ORDERED: HYDROCHLOROTHIA25 MG PO (18:56)
[2021-12-25] MEDS ORDERED: OMEPRAZOLE40 MG PO (18:56)
[2021-12-25] MEDS ORDERED: ATORVASTATIN CA20 MG PO (18:56)
[2021-12-25] MEDS ORDERED: LOSARTAN POTASS25 MG PO (18:56)
[2021-12-25] MEDS ORDERED: CORTISPORIN-TC10 M1 EACH EAR (20:17)
[2021-12-25 20:42] VITALS: BP 121/56
== END 2021-12-25 20:42 | disposition home or self-care (01) ==
LOC: FSED 18:49
DX: R19.7 Diarrhea, unspecified (principal); H66.93 Otitis media, unspecified, bilateral; E11.65 Type 2 diabetes mellitus with hyperglycemia; I10 Essential (primary) hypertension; E78.5 Hyperlipidemia, unspecified; F32.A Depression, unspecified; Z20.822 Contact with and (suspected) exposure to COVID-19
CPT/HCPCS: 80048; 80076; 81003; 83518; 85025; 87400; 99283; U0002

== ENCOUNTER 2022-04-02 18:42 | Emergency (ER) | payer MEDICARE ==
[~2022-04-02] VITALS: Ht 165.1 cm; Wt 102.5 kg
[~2022-04-02 18:42] MED LIST: ATORVASTATIN CA20 MG PO; BUPROPION XL300 MG; CORTISPORIN-TC10 M1 EACH EAR; HYDROCHLOROTHIA25 MG PO; LOSARTAN POTASS25 MG PO; OMEPRAZOLE40 MG PO
[2022-04-02] MEDS ORDERED: KETOROLAC TROMETHAMINE 60 MG/2 ML VIAL IM ONE (19:00)
[2022-04-02] MEDS ORDERED: KETOROLAC TROMETHAMINE 60 MG/2 ML VIAL ONE (19:38)
[2022-04-02] MEDS ORDERED: TRAMADOL HCL100 M2 PO (19:56)
[2022-04-02 20:00] VITALS: BP 140/63
== END 2022-04-02 20:00 | disposition home or self-care (01) ==
LOC: FSED 18:50
DX: M54.50 Low back pain, unspecified (principal); R10.30 Lower abdominal pain, unspecified; I10 Essential (primary) hypertension; E11.9 Type 2 diabetes mellitus without complications; E78.5 Hyperlipidemia, unspecified; F32.A Depression, unspecified
CPT/HCPCS: 74176; 96372; 99283; J1885

== ENCOUNTER 2024-08-25 17:06 | Emergency (ER) | payer OTHER, MEDICARE ==
[~2024-08-25] VITALS: Ht 165.1 cm; Wt 93.7 kg
[~2024-08-25 17:06] MED LIST changes: +TRAMADOL HCL100 M2 PO
[2024-08-25] MEDS ORDERED: FARXIGA5 MG (17:22)
[2024-08-25] MEDS ORDERED: OZEMPIC1 MG/0.71 (17:22)
[2024-08-25] MEDS: ACETAMINOPHEN 325 MG TAB PO ONE (17:48)
[2024-08-25] MEDS: KETOROLAC TROMETHAMINE 60 MG/2 ML VIAL IM ONE (20:17)
[2024-08-25 21:20] VITALS: PULSE 67; RESP 18; TEMP 97.3
[2024-08-25 21:30] VITALS: BP 116/58; PULSE 67; RESP 18; TEMP 97.3; O2SAT 98
== END 2024-08-25 21:26 | disposition home or self-care (01) ==
LOC: FSED 17:13
DX: S50.812A Abrasion of left forearm, initial encounter (principal); R07.89 Other chest pain; M25.562 Pain in left knee; R51.9 Headache, unspecified; R53.81 Other malaise; V53.5XXA Driver of pick-up truck or van injured in collision with car, pick-up truck or van in traffic accident, initial encounter; Y92.488 Other paved roadways as the place of occurrence of the external cause; I10 Essential (primary) hypertension; E11.9 Type 2 diabetes mellitus without complications; E78.5 Hyperlipidemia, unspecified; K21.9 Gastro-esophageal reflux disease without esophagitis; F41.9 Anxiety disorder, unspecified; F32.A Depression, unspecified; R94.31 Abnormal electrocardiogram [ECG] [EKG]
CPT/HCPCS: 70450; 71250; 72125; 73562; 74176; 93005; 99284; J1885